=== PATIENT | female | born 1950 | race Caucasian/White ===

== ENCOUNTER 2017-09-24 08:00 | Outpatient (CLI) | payer MEDICARE, BC ==
[2017-09-24 13:55] LABS: BASOPHILS % (AUTO) 0.2 %; EOSINOPHILS # (AUTO) 0.2 10^3/uL (0.0-0.7); HGB - HEMOGLOBIN 13.6 g/dL (12.0-16.0); LYMPHOCYTES # (AUTO) 1.9 10^3/uL (1.5-3.5); LYMPHOCYTES % (AUTO) 31.9 %; MEAN CORPUSCULAR HEMOGLOBIN 35.4 pg (27.0-31.0); MEAN CORPUSCULAR HGB CONC 33.6 g/dL (32.0-36.0); MEAN CORPUSCULAR VOLUME 105.2 fL (81.0-99.0); MEAN PLATELET VOLUME 7.8 fL (7.9-10.8); MONOCYTES # (AUTO) 0.4 10^3/uL (0.0-1.0); NEUTROPHILS # (AUTO) 3.4 10^3/uL (1.5-6.6); NEUTROPHILS % (AUTO) 56.9 %; PLT - PLATELET COUNT 331 10^3/uL (130-450); RED BLOOD COUNT 3.85 10^6/uL (4.20-5.40); RED CELL DISTRIBUTION WIDTH 12.7 % (12.0-15.0)
[2017-09-24 14:11] LABS: ALBUMIN 3.8 g/dL (3.2-5.5); ALBUMIN/GLOBULIN RATIO 1.2 (1.0-2.2); ALKALINE PHOSPHATASE 59 IU/L (42-121); ALT ALANINE AMINOTRANSFERASE 28 IU/L (10-60); AST ASPARTATE AMINOTRANSFERASE 31 IU/L (10-42); BILIRUBIN,TOTAL 0.5 mg/dL (0.2-1.0); BUN - BLOOD UREA NITROGEN 13 mg/dL (6-20); CALCIUM 9.2 mg/dL (8.5-10.3); CARBON DIOXIDE - CO2 27 mmol/L (21-32); CHLORIDE 103 mmol/L (101-111); CHOLESTEROL 165 mg/dL; CREATININE 0.8 mg/dL (0.4-1.0); GFR - MDRD 72 (>89); GLUCOSE 84 mg/dL (70-100); HDL CHOLESTEROL 82 mg/dL; LDL CHOLESTEROL,CALCULATED 68 mg/dL; LDL/HDL RATIO 0.8 (<4.4); SODIUM 136 mmol/L (135-145); TOTAL PROTEIN 6.9 g/dL (6.7-8.2); VLDL CHOLESTEROL 15 mg/dL
[2017-09-24 14:24] LABS: THYROID STIMULATING HORMONE 1.52 uIU/mL (0.34-5.60)
== END 2017-09-24 08:01 ==
LOC: LAB 08:00
PROVIDERS: ATTEND Nurse Practitioner Primary Care
DX: Z13.6 Encounter for screening for cardiovascular disorders (principal); Z13.29 Encounter for screening for other suspected endocrine disorder; R13.10 Dysphagia, unspecified; E03.9 Hypothyroidism, unspecified; K21.9 Gastro-esophageal reflux disease without esophagitis; F41.9 Anxiety disorder, unspecified; F32.9 Major depressive disorder, single episode, unspecified; Z98.84 Bariatric surgery status; Z79.899 Other long term (current) drug therapy
CPT/HCPCS: 36415; 80053; 80061; 82306; 82607; 83721; 84443; 85025

== ENCOUNTER 2017-10-02 09:21 | Outpatient (CLI) | payer MEDICARE, BC | END 2017-10-02 09:22 | LOC: LAB.R 09:21 | PROVIDERS: ATTEND Nurse Practitioner Primary Care | DX: D75.89 Other specified diseases of blood and blood-forming organs (principal) | CPT/HCPCS: 82746 ==

== ENCOUNTER 2018-06-05 16:13 | Outpatient (CLI) | payer MEDICARE, BC ==
--- NOTE | 2018-06-05 17:20 | XRAY Report ---
Reason: BURSITIS,RIGHT SHOULDER Procedure Date: 06/05/2018 Accession Number: [id number] / [id number] Procedure: XR - Shoulder 3 View RT CPT Code: FULL RESULT: EXAM: RIGHT SHOULDER RADIOGRAPHY EXAM DATE: 06/05/2018 05:03 PM. CLINICAL HISTORY: BURSITIS,RIGHT SHOULDER. COMPARISON: None. TECHNIQUE: 4 views. FINDINGS: Bones: No acute fracture or suspicious bone lesion. Joints: The glenohumeral and acromioclavicular joints are unremarkable. Soft tissues: The partially imaged lung is unremarkable. IMPRESSION: No acute radiographic abnormalities. [facility] The call report notification system was initiated by Dr. Ha Roman at 05:19 PM on 06/05/2018.
== END 2018-06-05 16:14 | disposition home or self-care (01) ==
LOC: DI 16:13
PROVIDERS: ATTEND Family Medicine
DX: M75.51 Bursitis of right shoulder (principal)